=== PATIENT | male | born 1950 | race Caucasian/White ===

== ENCOUNTER → 2017-01-03 | Outpatient (CLI) | payer OTHER ==
[~2017-01-03] MED LIST: ALLO300T PO; ATOR20TA9 PO; CARI350T14 PO; CYCL5TAB PO; DOXA8TAB63 PO; DUTA0.5C PO; ESOM40CA PO; FINA5TAB4 PO; GADOBUTROL 10 MMOL/10 ML VIAL ONE; HYDR-3237 PO; HYDR25TA6 PO; IBUP-1484 PO; LOSA50TA6 PO; OMEP40CA6 PO; OXYC5CAP2 PO; PREG100C PO; VERA240C2 PO; WARF2.5T73 PO; WARF3TAB7 PO; WARF5TAB7 PO
== END | disposition home or self-care (01) ==
LOC: CFH 11:49
PROVIDERS: ATTEND Internal Medicine Nephrology
DX: K76.89 Other specified diseases of liver (principal); R16.0 Hepatomegaly, not elsewhere classified; N28.1 Cyst of kidney, acquired; I70.1 Atherosclerosis of renal artery; I12.9 Hypertensive chronic kidney disease with stage 1 through stage 4 chronic kidney disease, or unspecified chronic kidney disease; N18.4 Chronic kidney disease, stage 4 (severe); I82.402 Acute embolism and thrombosis of unspecified deep veins of left lower extremity; R73.03 Prediabetes; M10.9 Gout, unspecified
CPT/HCPCS: 74183; A9585

== ENCOUNTER 2017-03-28 09:23 | Day surgery (SDC) | payer OTHER ==
[~2017-03-28] VITALS: Ht 172.7 cm; Wt 76.2 kg
[~2017-03-28 09:23] MED LIST changes: +CHOL200074 PO; -GADOBUTROL 10 MMOL/10 ML VIAL ONE; +SPIR25TA3 PO
[2017-03-28 10:06] VITALS: BP 139/80
[2017-03-28] MEDS ORDERED: LACTATED RINGERS 1,000 ML IV SCH (10:11)
[2017-03-28 10:31] LABS: HEMATOCRIT 43.7 % (39.2-51.8); HEMOGLOBIN 14.2 g/dL (13.7-18.0); WHITE BLOOD COUNT 6.8 x10^3/uL (3.4-10)
[2017-03-28 10:41] LABS: ASPARTATE AMINO TRANSFERASE 32 U/L (15-37); BLOOD UREA NITROGEN 15 mg/dL (7-18)
[2017-03-28] MEDS ORDERED: MIDAZOLAM 1 MG/ML, 2ML ONE (11:31)
[2017-03-28] MEDS ORDERED: FENTANYL PF 100 MCG/2ML ONE (11:32)
[2017-03-28] MEDS ORDERED: ONDANSETRON 2MG/ML, 2ML ONE (12:01)
[2017-03-28] MEDS ORDERED: DEXAMETHASONE 4 MG/ML, 1ML ONE (12:01)
[2017-03-28] MEDS ORDERED: PROPOFOL 10 MG/ML, 20ML ONE (12:01)
[2017-03-28] MEDS ORDERED: CEFAZOLIN 1,000 MG ONE ×2 (12:01)
[2017-03-28] MEDS ORDERED: EPHEDRINE 50 MG/ML, 1ML ONE (12:24)
[2017-03-28] MEDS ORDERED: PROMETHAZINE 25 MG/ML, 1ML IV PRN (12:30)
[2017-03-28] MEDS ORDERED: FENTANYL PF 100 MCG/2ML IV PRN (12:30)
[2017-03-28] MEDS ORDERED: OXYcodone 5 MG/5 ML ORAL.SOL UDC PO PRN (12:30)
[2017-03-28] MEDS ORDERED: OXYcodone 5 MG/5 ML ORAL.SOL UDC ONE (12:47)
[2017-03-28] MEDS ORDERED: KETOROLAC 30 MG/1 ML ONE (14:04)
[2017-03-28] MEDS ORDERED: KETOROLAC 30 MG/1 ML IVPush ONE (14:30)
== END 2017-03-28 14:30 ==
LOC: OUT 09:23
PROVIDERS: ATTEND Surgery
DX: Z45.2 Encounter for adjustment and management of vascular access device (principal); C18.9 Malignant neoplasm of colon, unspecified; I10 Essential (primary) hypertension; Z86.718 Personal history of other venous thrombosis and embolism; Z98.890 Other specified postprocedural states
CPT/HCPCS: 36415; 36561; 77001; 80053; 85025; 85610; 93005; C1788; J0171; J0690; J1100; J1644; J1885; J2250; J2405; J2704; J3010; J3490; J7120

== ENCOUNTER → 2017-06-14 | Outpatient (CLI) | payer MEDICARE, OTHER ==
[~2017-06-14] MED LIST changes: +OMNIPAQUE 350 MG/ML, 100ML BOTTLE ONE
== END | disposition home or self-care (01) ==
LOC: CFH 11:50
PROVIDERS: ATTEND Specialist
DX: K76.89 Other specified diseases of liver (principal); R91.8 Other nonspecific abnormal finding of lung field; C19 Malignant neoplasm of rectosigmoid junction; Z90.49 Acquired absence of other specified parts of digestive tract
CPT/HCPCS: 71260; 74177; Q9967

== ENCOUNTER → 2017-08-09 | Outpatient (CLI) | payer MEDICARE, OTHER ==
[~2017-08-09] MED LIST changes: +WARF-36 PO; +WARF3TAB52 PO; -WARF3TAB7 PO; -WARF5TAB7 PO
== END | disposition home or self-care (01) ==
LOC: CFH 12:41
PROVIDERS: ATTEND Specialist
DX: C78.7 Secondary malignant neoplasm of liver and intrahepatic bile duct (principal); C19 Malignant neoplasm of rectosigmoid junction; R91.8 Other nonspecific abnormal finding of lung field
CPT/HCPCS: 71260; 74177; Q9967

== ENCOUNTER → 2017-09-03 | Outpatient (CLI) | payer MEDICARE, OTHER | LOC: RAD 11:35 | PROVIDERS: ATTEND Specialist | DX: C19 Malignant neoplasm of rectosigmoid junction (principal) | CPT/HCPCS: 74170; Q9967 ==

== ENCOUNTER → 2017-10-12 | Outpatient (CLI) | payer MEDICARE, OTHER ==
[~2017-10-12] MED LIST changes: -OMNIPAQUE 350 MG/ML, 100ML BOTTLE ONE
== END | disposition home or self-care (01) ==
LOC: ROC 07:59
PROVIDERS: ATTEND Radiology Radiation Oncology
DX: Z08 Encounter for follow-up examination after completed treatment for malignant neoplasm (principal); C20 Malignant neoplasm of rectum
CPT/HCPCS: G0463

== ENCOUNTER → 2017-11-20 | Outpatient (CLI) | payer MEDICARE, OTHER ==
[~2017-11-20] MED LIST changes: +OMNIPAQUE 350 MG/ML, 100ML BOTTLE ONE; -SPIR25TA3 PO; +SPIR25TA5 PO
== END | disposition home or self-care (01) ==
LOC: CFH 12:37
PROVIDERS: ATTEND Surgery
DX: C78.7 Secondary malignant neoplasm of liver and intrahepatic bile duct (principal); C20 Malignant neoplasm of rectum; I31.3 Pericardial effusion (noninflammatory); N28.1 Cyst of kidney, acquired; K86.89 Other specified diseases of pancreas; Z90.49 Acquired absence of other specified parts of digestive tract
CPT/HCPCS: 74170; 82565; Q9967

== ENCOUNTER → 2017-12-19 | Outpatient (CLI) | payer MEDICARE, OTHER ==
[~2017-12-19] MED LIST changes: -LOSA50TA6 PO; +LOSA50TA7 PO; -OMNIPAQUE 350 MG/ML, 100ML BOTTLE ONE
== END | disposition home or self-care (01) ==
LOC: ROC 07:36
PROVIDERS: ATTEND Radiology Radiation Oncology
DX: Z02.9 Encounter for administrative examinations, unspecified (principal)

== ENCOUNTER → 2018-02-01 | Outpatient (CLI) | payer MEDICARE, OTHER ==
[~2018-02-01] MED LIST changes: +OMNIPAQUE 350 MG/ML, 100ML BOTTLE ONE
== END | disposition home or self-care (01) ==
LOC: RAD 11:00
PROVIDERS: ATTEND Specialist
DX: J90 Pleural effusion, not elsewhere classified (principal); J98.4 Other disorders of lung; C19 Malignant neoplasm of rectosigmoid junction
CPT/HCPCS: 71260; 74177; J1642; Q9967

== ENCOUNTER → 2018-02-04 | Outpatient (CLI) | payer MEDICARE, OTHER ==
[~2018-02-04] MED LIST changes: -OMNIPAQUE 350 MG/ML, 100ML BOTTLE ONE
== END | disposition home or self-care (01) ==
LOC: ROC 08:20
PROVIDERS: ATTEND Radiology Radiation Oncology
DX: C19 Malignant neoplasm of rectosigmoid junction (principal)
CPT/HCPCS: G0463

== ENCOUNTER 2018-04-25 13:04 | Outpatient (CLI) | payer MEDICARE, OTHER ==
[~2018-04-25 13:04] MED LIST changes: +ATOR20TA37 PO; -ATOR20TA9 PO; +LOSA50TA14 PO; -LOSA50TA7 PO; +WARF2.5T32 PO; -WARF2.5T73 PO
[2018-04-25] MEDS ORDERED: OMNIPAQUE 350 MG/ML, 100ML BOTTLE ONE (15:54)
== END 2018-04-25 23:59 | disposition home or self-care (01) ==
LOC: CFH 13:04
PROVIDERS: ATTEND Specialist
DX: C20 Malignant neoplasm of rectum (principal); J92.9 Pleural plaque without asbestos; M48.55XD Collapsed vertebra, not elsewhere classified, thoracolumbar region, subsequent encounter for fracture with routine healing; M47.816 Spondylosis without myelopathy or radiculopathy, lumbar region; N28.1 Cyst of kidney, acquired; Z90.49 Acquired absence of other specified parts of digestive tract
CPT/HCPCS: 71260; 74177; Q9967

== ENCOUNTER → 2018-05-06 | Outpatient (CLI) | payer MEDICARE, OTHER | END | disposition home or self-care (01) | LOC: ROC 07:09 | PROVIDERS: ATTEND Radiology Radiation Oncology | DX: C19 Malignant neoplasm of rectosigmoid junction (principal) | CPT/HCPCS: G0463 ==